=== PATIENT | female | born 1990 | race Two or more races ===

== ENCOUNTER 2017-07-01 21:11 | Emergency (ER) | payer BC, MEDICAID ==
[2017-07-01] MEDS ORDERED: Ketorolac INJ* 30 MG/ML 1 ML VIAL IV PUSH ONE (21:43)
[2017-07-01] MEDS ORDERED: Pantoprazole IV* 40 MG IV ONE (21:43)
[2017-07-01] MEDS ORDERED: NS 0.9% 1000 ML* 2,000 ML IV ONE (21:43)
[2017-07-01] MEDS ORDERED: Morphine INJ* 4 MG/ML 1 ML SYRINGE IV ONE (21:43)
[2017-07-01] MEDS ORDERED: Ondansetron INJ* 2 MG/ML VIAL IV ONE (21:43)
[2017-07-01 22:03] LABS: Hematocrit 42 % (35-47); Mean Corpuscular HGB Conc 34 g/dl (31-36); Mean Corpuscular Hemoglobin 31 pg (27-31); Mean Corpuscular Volume 93 fL (80-97); Mean Platelet Volume 9 um3 (7.4-10.4); Red Cell Distribution Width 13 % (10.5-15); White Blood Count 10.3 10^3/ul (3.5-10.8)
[2017-07-01 22:17] LABS: ALT 22 U/L (7-52); AST 37 U/L (13-39); Albumin 4.1 g/dL (3.2-5.2); Alkaline Phosphatase 80 U/L (34-104); Anion Gap 6 mmol/L (2-11); BUN/Creatinine Ratio 15.2 (8-20); Blood Urea Nitrogen 14 mg/dL (6-24); CO2 Carbon Dioxide 29 mmol/L (22-32); Calcium 8.9 mg/dL (8.6-10.3); Chloride 103 mmol/L (101-111); EGFR African American 94.9 (>60); EGFR Non-African American 73.8 (>60); Globulin 2.8 g/dL (2-4); Glucose 106 mg/dL (70-100); Lipase 18 U/L (11.0-82.0); Potassium 3.6 mmol/L (3.5-5.0); Sodium 138 mmol/L (133-145); Total Protein 6.9 g/dL (6.4-8.9)
--- NOTE | 2017-07-01 23:53 | ED ---
GI/ HPI - HPI Summary HPI Summary: 26F (transgender) presents with epigastric pain. He states that he had nausea and vomiting yesterday but has not vomited today but feels like he should. He admits to diarrhea today. His last BM was 3 hours ago. He states the epigastric pain radiates to his back. He states had this pain once when was septic from surgery for mastectomy. Has had gallbladder removed like 6 months ago. has not been seen for this pain yet. no dysuria, hematuria, flank pain, frequency or urgency. She tried peptobismol, gasx without relief. He took some tyenlol without relief. He denies any history of obstruction. He does drink alot daily. - History of Current Complaint Chief Complaint: EDAbdPain Time Seen by Provider: 07/01/17 21:34 Stated Complaint: WORSENING ABD PAIN,VOMITING Pain Intensity: 8 - Allergy/Home Medications Allergies/Adverse Reactions: Allergies Allergy/AdvReac Type Severity Reaction Status Date / Time No Known Allergies Allergy Verified 09/15/16 19:25 PMH/Surg Hx/FS Hx/Imm Hx Endocrine/Hematology History: Denies: Hx Anticoagulant Therapy, Hx Diabetes, Hx Thyroid Disease Cardiovascular History: Denies: Hx Congestive Heart Failure, Hx Deep Vein Thrombosis, Hx Hypertension , Hx Myocardial Infarction, Hx Pacemaker/ICD Respiratory History: Reports: Hx Asthma - Not on any medications for this. Denies: Hx Chronic Obstructive Pulmonary Disease (COPD), Hx Lung Cancer, Hx Pneumonia, Hx Pulmonary Embolism GI History: Denies: Hx Gall Bladder Disease, Hx Gastrointestinal Bleed, Hx Ulcer, Hx Urosepsis History: Denies: Hx Kidney Stones, Hx Renal Disease Neurological History: Denies: Hx Dementia, Hx Migraine, Hx Seizures, Hx Transient Ischemic Attacks (TIA) Psychiatric History: Reports: Hx Anxiety, Hx Depression Denies: Hx Schizophrenia, Hx Bipolar Disorder - Surgical History Surgery Procedure, Year, and Place: bilateral mastectomy Infectious Disease History: No Infectious Disease History: Denies: History Other Infectious Disease, Traveled Outside the [place] in Last 30 Days - Family History Known Family History: Positive: Diabetes Negative: Cardiac Disease, Hypertension - Social History Alcohol Use: Occasionally Substance Use Type: Reports: None Smoking Status (MU): Never Smoked Tobacco Review of Systems Negative: Fever Negative: Chest Pain Negative: Shortness Of Breath Positive: Abdominal Pain, Vomiting, Diarrhea, Nausea All Other Systems Reviewed And Are Negative: Yes Physical Exam Triage Information Reviewed: Yes Vital Signs On Initial Exam: Initial Vitals Temp Pulse Resp BP Pulse Ox 98.5 F 88 18 136/59 99 07/01/17 21:19 07/01/17 21:19 07/01/17 21:19 07/01/17 21:19 07/01/17 21:19 Vital Signs Reviewed: Yes Appearance: Positive: Pain Distress Skin: Positive: Warm, Dry Head/Face: Positive: Normal Head/Face Inspection Eyes: Positive: Normal, EOMI, DANTE, Conjunctiva Clear ENT: Positive: Normal ENT inspection, Pharynx normal, TMs normal Respiratory/Lung Sounds: Positive: Clear to Auscultation, Breath Sounds Present Cardiovascular: Positive: Normal, RRR Abdomen Description: Positive: Soft, Other: - moderate tenderness epigastric no rebound Bowel Sounds: Positive: Present - [place] Coma Scale Coma Scale Total: 15 Diagnostics - Vital Signs Vital Signs Temp Pulse Resp BP Pulse Ox 07/01/17 22:26 18 07/01/17 21:56 98.1 F 81 18 139/74 99 07/01/17 21:19 98.5 F 88 18 136/59 99 - Laboratory Lab Results: Lab Results 07/01/17 07/01/17 Range/Units 21:55 21:55 WBC 10.3 (3.5-10.8) 10^3/ul RBC 4.50 (4.0-5.4) 10^6/ul Hgb 14.0 (12.0-16.0) g/dl Hct 42 (35-47) % MCV 93 (80-97) fL MCH 31 (27-31) pg MCHC 34 (31-36) g/dl RDW 13 (10.5-15) % Plt Count 227 (150-450) 10^3/ul MPV 9 (7.4-10.4) um3 Neut % (Auto) 67.6 (38-83) % Lymph % (Auto) 23.5 L (25-47) % [place] % (Auto) 7.5 (1-9) % Eos % (Auto) 1.0 (0-6) % Baso % (Auto) 0.4 (0-2) % Absolute Neuts (auto) 7.0 (1.5-7.7) 10^3/ul Absolute Lymphs (auto) 2.4 (1.0-4.8) 10^3/ul Absolute Monos (auto) 0.8 (0-0.8) 10^3/ul Absolute Eos (auto) 0.1 (0-0.6) 10^3/ul Absolute Basos (auto) 0 (0-0.2) 10^3/ul Absolute Nucleated RBC 0.01 10^3/ul Nucleated RBC % 0.1 Sodium 138 (133-145) mmol/L Potassium 3.6 (3.5-5.0) mmol/L Chloride 103 (101-111) mmol/L Carbon Dioxide 29 (22-32) mmol/L Anion Gap 6 (2-11) mmol/L BUN 14 (6-24) mg/dL Creatinine 0.92 (0.51-0.95) mg/dL Est GFR ( Amer) 94.9 (>60) Est GFR (Non-Af Amer) 73.8 (>60) BUN/Creatinine Ratio 15.2 (8-20) Glucose 106 H (70-100) mg/dL Calcium 8.9 (8.6-10.3) mg/dL Total Bilirubin 0.40 (0.2-1.0) mg/dL AST 37 (13-39) U/L ALT 22 (7-52) U/L Alkaline Phosphatase 80 (34-104) U/L C-React Prot High Sens 0.31 mg/L Total Protein 6.9 (6.4-8.9) g/dL Albumin 4.1 (3.2-5.2) g/dL Globulin 2.8 (2-4) g/dL Albumin/Globulin Ratio 1.5 (1-3) Lipase 18 (11.0-82.0) U/L Beta HCG, Quant < 0.60 mIU/mL Result Diagrams: 07/01/17 21:55 07/01/17 21:55 Lab Statement: Any lab studies that have been ordered have been reviewed, and results considered in the medical decision making process. - CT abd CT Interpretation: Positive (See Comments) - trace contast in dsital esophagus possible refluxed. no clear perpancreatic inflammatory changes. multiple midly distended loops of small bowel with scattered air fluid levels may resepresent ileus or partial obstruction. normal appnedix. CT Interpretation Completed By: Radiologist Re-Evaluation - Re-Evaluation First Eval Re-Evaluation Time: 12:00 Change: Improved Comment: currently sleeping GIGU Course/Dx - Course Course Of Treatment: 26F (transgender) presents with epigastric pain. He states that he had nausea and vomiting yesterday but has not vomited today but feels like he should. He admits to diarrhea today. His last BM was 3 hours ago. He states the epigastric pain radiates to his back. He states had this pain once when was septic from surgery for mastectomy. Has had gallbladder removed like 6 months ago. has not been seen for this pain yet. no dysuria, hematuria, flank pain, frequency or urgency. She tried peptobismol, gasx without relief. He took some tyenlol without relief. He denies any history of obstruction. on exam tender in epigastric region. labs normal. CT potential obstruction or ileus? told to return if symptoms get worst. discussed with dr cheng will send home with bowel rest. patient understands and agrees with plan. - Diagnoses Differential Diagnoses - Female: Pancreatitis, Peptic Ulcer Disease, Other - SBO , ileus Provider Diagnoses: Abdominal pain Discharge - Discharge Plan Condition: Good Disposition: HOME Prescriptions: Ondansetron ODT TAB* [Zofran 4 MG Odt TAB*] 4 mg PO Q6H PRN #15 tab.odt PRN Reason: Nausea Patient Education Materials: Clear Liquid Diet (ED), Abdominal Pain (ED) Referrals: [facility] [place] [place] [facility] REFERRAL [Outside] Additional Instructions: Drink small amounts of fluid as tolerated Follow a clear liquid diet Take zofran every 6 hours for nausea Take ibuprofen or Tylenol for pain as needed every 6 hours Establish care with primary Return to ED if develop any new or worsening symptoms
[2017-07-02] MEDS ORDERED: Iohexol 300* (CONTRAST) 10 ML SDV IV ONE (00:05)
[2017-07-02 00:59] LABS: Urine Bacteria Absent (Absent); Urine Bilirubin Negative (Negative); Urine Glucose Negative (Negative); Urine Nitrite Negative (Negative)
[2017-07-02] MEDS ORDERED: Ondansetron ODT TAB* 4 MG PO ONE (01:49)
[2017-07-02 02:11] VITALS: BP 102/54
[2017-07-02] MEDS ORDERED: Acetaminophen TAB* 325 MG PO ONE ×2 (03:04)
[2017-07-02] MEDS ORDERED: Acetaminophen TAB* 325 MG ONE (03:06)
--- NOTE | 2017-07-02 10:01 | RAD ---
INDICATION: Severe epigastric pain radiating to the back. Vomiting, nausea, diarrhea. COMPARISON: No relevant prior exams available on the [facility] [place] for comparison. TECHNIQUE: Multidetector CT images were obtained from the lung bases to the ischial tuberosities with 92 mL Omnipaque 300 IV and oral contrast. Multiplanar reformation. REPORT: Unremarkable visualized inferior thorax. Unremarkable liver. Decompressed gallbladder limiting assessment. No CT abnormality of the pancreas or spleen. Moderate gastric distention with contrast and food stuff. No suspicious CT abnormality of the upper GI. Dilatation of the jejunal bowel loops measuring up to 3 cm diameter. Transition point in the anterior mid abdomen with moderate length segment moderate mural thickening reference coronal reformatted image 21 of 88 and adjacent images. No discrete obstructing lesion evident. Some contrast passes distal to the noted transition point. Moderate stool in the RIGHT colon. Normal appendix visualized along the RIGHT pelvic sidewall. Small volume of free pelvic fluid. Negative for free air. Negative for hernias. Normal adrenal glands. Unremarkable kidneys with symmetric nephrograms and pyelograms. Negative for hydronephrosis. No suspicious finding along the course of the nondilated ureters. Moderately distended urinary bladder. Unremarkable retroverted uterus and adnexal regions. Negative for lymphadenopathy. Normal diameter abdominal aorta and iliac arteries. Physiologic distention of the IVC. Negative for suspicious osseous lesions. IMPRESSION: 1. Partial small bowel obstruction with transition point involving a distal jejunal bowel loop in the anterior mid abdomen with moderate mural thickening. While nonspecific consider acute gastroenteritis. Correlate with clinical assessment. 2. Normal appendix documented. 3. Small volume of free pelvic fluid. Negative for free air.
== END 2017-07-02 03:09 | disposition home or self-care (01) ==
LOC: ED 21:11
DX: R10.13 Epigastric pain (principal); R11.2 Nausea with vomiting, unspecified; R19.7 Diarrhea, unspecified
CPT/HCPCS: 36415; 74177; 80053; 81003; 81015; 83690; 84702; 85025; 86141; 87086; 96374; 96375; 99283; A9270-GY; J1885; J2270; J2405; Q9967

== ENCOUNTER 2017-07-02 11:42 | Observation (INO) | payer SELFPAY ==
[2017-07-02] MEDS ORDERED: Ketorolac INJ* 30 MG/ML 1 ML VIAL IV ONE (12:13)
[2017-07-02] MEDS ORDERED: Ondansetron ODT TAB* 4 MG PO ONE (12:13)
[2017-07-02] MEDS ORDERED: Ondansetron INJ* 2 MG/ML VIAL IV ONE (12:13)
[2017-07-02] MEDS ORDERED: NS 0.9% 1000 ML* 1,000 ML IV ONE (12:13)
--- NOTE | 2017-07-02 12:47 | RAD ---
Indication: Worsening of abdominal pain. Nausea and vomiting. Comparison: 0035 hours July 02, [address] Technique: Supine and upright views of the abdomen. Report: No radiographic evidence for free air. Long segment dilated small bowel loops with air-fluid levels. Propagation of oral contrast from the earlier CT exam of the same date to the RIGHT colon. Remainder of the colon is largely decompressed. No suspicious calcifications or mass effect. IMPRESSION: Persistent finding of partial small bowel obstruction. Negative for free air.
[2017-07-02 12:58] LABS: Hematocrit 46 % (35-47); Hemoglobin 15.3 g/dl (12.0-16.0); Mean Corpuscular HGB Conc 34 g/dl (31-36); Mean Corpuscular Hemoglobin 32 pg (27-31); Mean Corpuscular Volume 94 fL (80-97); Mean Platelet Volume 9 um3 (7.4-10.4); Red Blood Count 4.87 10^6/ul (4.0-5.4); Red Cell Distribution Width 13 % (10.5-15); White Blood Count 10.5 10^3/ul (3.5-10.8)
[2017-07-02 13:15] LABS: Albumin 3.8 g/dL (3.2-5.2); BUN/Creatinine Ratio 6.7 (8-20); C Reactive Protein 2.05 mg/L (< 5.00); Calcium 9.2 mg/dL (8.6-10.3); EGFR African American 98.6 (>60); EGFR Non-African American 76.7 (>60); Globulin 2.9 g/dL (2-4); Potassium 3.8 mmol/L (3.5-5.0); Total Bilirubin 0.8 mg/dL (0.2-1.0); Total Protein 6.7 g/dL (6.4-8.9)
[2017-07-02] MEDS ORDERED: traZODone TAB* 50 MG TAB PO PRN ×2 (14:49→14:59)
[2017-07-02] MEDS ORDERED: Ketorolac INJ* 15 MG/ML 1 ML VIAL IV PUSH PRN (14:50)
[2017-07-02] MEDS ORDERED: Ondansetron INJ* 2 MG/ML VIAL IV PRN (14:50)
[2017-07-02] MEDS ORDERED: Acetaminophen TAB* 325 MG PO PRN (14:50)
[2017-07-02] MEDS ORDERED: metroNIDAZOLE IV 500 MG/100ML* 500 MG/100 ML BAG IVPB SCH (15:00)
[2017-07-02] MEDS ORDERED: metroNIDAZOLE IV 500 MG/100ML* 500 MG/100 ML BAG IVPB ONE (15:23)
[2017-07-02] MEDS: Sucralfate TAB* 1 GM PO SCH (15:25)
[2017-07-02] MEDS: Pantoprazole IV* 40 MG IV SCH (15:25)
[2017-07-02] MEDS: NS 0.9% 1000 ML* 1,000 ML IV SCH (16:46)
[2017-07-02] MEDS: Ciprofloxacin 400MG IVPREMIX(* 400 MG/200 ML BAG IVPB SCH (16:48)
[2017-07-02] MEDS ORDERED: Scopolamine 1.5 mg* PATCH TRANSDERM SCH (17:00)
[2017-07-02 17:39] LABS: Urine Bilirubin Negative (Negative); Urine Glucose Negative (Negative); Urine Nitrite Negative (Negative)
--- NOTE | 2017-07-02 17:59 | ED ---
Bonnie Olson SooYoung, scribed for Sinan Lundberg MD on 07/02/17 at 1217 . GI/ HPI - HPI Summary HPI Summary: A 26 y/o FTM pt presents with c/o L-sided abd pain and bloating onset two days ago. Pain is non-radiating and rated as 10 out of 10. Associated sx: n/d, subjective fever, chills. Pt was seen in ED yesterday for same sx. Pt has been unable to eat and drink. Pt states taking an herbal supplement, Kratom, two days ago and then having sudden onset, acute abd pain. No prev abd sx episodes similar to this. Nonsmoker. Occasional ETOH. Marijuana for pain and nausea. - History of Current Complaint Chief Complaint: EDAbdPain Time Seen by Provider: 07/02/17 12:03 Stated Complaint: ABD PAIN Hx Obtained From: Patient Onset/Duration: Started Days Ago - two days ago, Still Present Timing: Constant Current Severity: Severe Pain Intensity: 8 - OUT OF 10 Location of Pain: LUQ, LLQ Pain Characteristics: Unable to describe Associated Signs and Symptoms: Positive: Nausea - severe, Diarrhea, Fever - subjective, Chills - Allergy/Home Medications Allergies/Adverse Reactions: Allergies Allergy/AdvReac Type Severity Reaction Status Date / Time No Known Allergies Allergy Verified 07/02/17 11:58 PMH/Surg Hx/FS Hx/Imm Hx Previously Healthy: No Endocrine/Hematology History: Denies: Hx Anticoagulant Therapy, Hx Diabetes, Hx Thyroid Disease Cardiovascular History: Denies: Hx Congestive Heart Failure, Hx Deep Vein Thrombosis, Hx Hypertension , Hx Myocardial Infarction, Hx Pacemaker/ICD Respiratory History: Reports: Hx Asthma - Not on any medications for this. Denies: Hx Chronic Obstructive Pulmonary Disease (COPD), Hx Lung Cancer, Hx Pneumonia, Hx Pulmonary Embolism GI History: Denies: Hx Gall Bladder Disease, Hx Gastrointestinal Bleed, Hx Ulcer, Hx Urosepsis History: Denies: Hx Kidney Stones, Hx Renal Disease Neurological History: Denies: Hx Dementia, Hx Migraine, Hx Seizures, Hx Transient Ischemic Attacks (TIA) Psychiatric History: Reports: Hx Anxiety, Hx Depression Denies: Hx Schizophrenia, Hx Bipolar Disorder - Surgical History Surgery Procedure, Year, and Place: bilateral mastectomy, cholecystectomy Infectious Disease History: No Infectious Disease History: Denies: History Other Infectious Disease, Traveled Outside the [place] in Last 30 Days - Family History Known Family History: Positive: Diabetes Negative: Cardiac Disease, Hypertension - Social History Occupation: Employed Full-time Lives: With Family - FRIEND Alcohol Use: Occasionally Hx Substance Use: Yes Substance Use Type: Reports: Marijuana Hx Tobacco Use: No Smoking Status (MU): Never Smoked Tobacco Review of Systems Positive: Fever - subjective, Chills Positive: Abdominal Pain, Diarrhea, Nausea All Other Systems Reviewed And Are Negative: Yes Physical Exam - Summary Physical Exam Summary: VITAL SIGNS: Reviewed. GENERAL: Patient is a well-developed and nourished FTM person who is lying comfortable in the stretcher. Patient is not in any acute respiratory distress. HEAD AND FACE: Normocephalic and atraumatic. EYES: PERRLA, EOMI x 2, No injected conjunctiva. EARS: Hearing grossly intact. Ear canals and tympanic membranes are WNL. MOUTH: Oropharynx within normal limits. NECK: Supple, trachea is midline, no adenopathy, no JVD. CHEST: Symmetric, no tenderness at palpation LUNGS: Clear to auscultation bilaterally. No wheezing or crackles. CVS: RRR, S1 and S2 present, no murmurs or gallops appreciated. ABDOMEN: SOFT. L-SIDED ABD TENDERNESS, NO REBOUND, NO GUARDING. No signs of distention. No masses palpated. No abdominal bruit or pulsations. EXTREMITIES: FROM in all major joints, no edema, no cyanosis or clubbing. NEURO: Alert and oriented x 3. No acute neurological deficits. Speech is normal. SKIN: Dry and warm Triage Information Reviewed: Yes Vital Signs On Initial Exam: Initial Vitals Temp Pulse Resp BP Pulse Ox 98.9 F 84 16 123/64 97 07/02/17 11:45 07/02/17 11:45 07/02/17 11:45 07/02/17 11:45 07/02/17 11:45 Vital Signs Reviewed: Yes - [place] Coma Scale Coma Scale Total: 15 Diagnostics - Vital Signs Vital Signs Temp Pulse Resp BP Pulse Ox 07/02/17 11:45 98.9 F 84 16 123/64 97 - Laboratory Lab Results: Lab Results 07/02/17 07/02/17 07/02/17 Range/Units 12:43 12:43 12:43 WBC 10.5 (3.5-10.8) 10^3/ul RBC 4.87 (4.0-5.4) 10^6/ul Hgb 15.3 (12.0-16.0) g/dl Hct 46 (35-47) % MCV 94 (80-97) fL MCH 32 H (27-31) pg MCHC 34 (31-36) g/dl RDW 13 (10.5-15) % Plt Count 244 (150-450) 10^3/ul MPV 9 (7.4-10.4) um3 Neut % (Auto) 80.4 (38-83) % Lymph % (Auto) 13.3 L (25-47) % [place] % (Auto) 4.9 (1-9) % Eos % (Auto) 0.6 (0-6) % Baso % (Auto) 0.8 (0-2) % Absolute Neuts (auto) 8.4 H (1.5-7.7) 10^3/ul Absolute Lymphs (auto) 1.4 (1.0-4.8) 10^3/ul Absolute Monos (auto) 0.5 (0-0.8) 10^3/ul Absolute Eos (auto) 0.1 (0-0.6) 10^3/ul Absolute Basos (auto) 0.1 (0-0.2) 10^3/ul Absolute Nucleated RBC 0 10^3/ul Nucleated RBC % 0 Sodium 135 (133-145) mmol/L Potassium 3.8 (3.5-5.0) mmol/L Chloride 102 (101-111) mmol/L Carbon Dioxide 26 (22-32) mmol/L Anion Gap 7 (2-11) mmol/L BUN 6 (6-24) mg/dL Creatinine 0.89 (0.51-0.95) mg/dL Est GFR ( Amer) 98.6 (>60) Est GFR (Non-Af Amer) 76.7 (>60) BUN/Creatinine Ratio 6.7 L (8-20) Glucose 96 (70-100) mg/dL Lactic Acid 0.8 (0.5-2.0) mmol/L Calcium 9.2 (8.6-10.3) mg/dL Total Bilirubin 0.80 (0.2-1.0) mg/dL AST 31 (13-39) U/L ALT 21 (7-52) U/L Alkaline Phosphatase 74 (34-104) U/L C-Reactive Protein 2.05 (< 5.00) mg/L Total Protein 6.7 (6.4-8.9) g/dL Albumin 3.8 (3.2-5.2) g/dL Globulin 2.9 (2-4) g/dL Albumin/Globulin Ratio 1.3 (1-3) Amylase 76 (29-103) U/L Lipase 14 (11.0-82.0) U/L Result Diagrams: 07/02/17 12:43 07/02/17 12:43 Lab Statement: Any lab studies that have been ordered have been reviewed, and results considered in the medical decision making process. - Radiology ABD Xray Interpretation: Positive (See Comments) - IMPRESSION: Persistent finding of partial small bowel obstruction. Negative for free air. Radiology Interpretation Completed By: Radiologist - EKG 1312 Cardiac Rate: NL - 85 bpm EKG Rhythm: Sinus Rhythm ST Segment: Normal - no ST elevation GIGU Course/Dx - Course Course Of Treatment: Pt is a 26 y/o FTM pt presents with c/o L-sided abd pain and bloating onset two days ago. Pain is non-radiating and rated as 10 out of 10. Associated sx: n/d, subjective fever, chills. Pt was seen in ED yesterday for same sx. Pt has been unable to eat and drink. Pt states taking an herbal supplement, Kratom, two days ago and then having sudden onset, acute abd pain. No prev abd sx episodes similar to this. Nonsmoker. Occasional ETOH. Marijuana for pain and nausea. Blood work is without significant abnormalities. EKG is NSR at [address] elevation. ABD XR shows "Persistent finding of partial small bowel obstruction. Negative for free air.". In the ED course an IV access was obtained. Patient was placed in a vehicle monitor technician. Patient was started with IV fluids. He was given Toradol for the pain and Zofran for nausea and vomiting. Labs w/o a significant abnormality. EKG shows a NSR at w/o ST elevations. Abdominal X-ray: Persistent finding of partial small bowel obstruction. Negative for free air. Patient continues to be nauseous therefore he was given another dose of Zofran. CT of abdomen and pelvis yesterday showed the small bowel obstruction. I discuss my physical exam, findings and test results with Dr. Villarreal from the hospitalist services and she agrees to admit patient to his services. Patient is hemodynamically stable alert and oriented x 3. - Diagnoses Differential Diagnoses - Female: Bowel Obstruction, Colitis, Fecal Impaction, Urinary Tract Infection Provider Diagnoses: Partial small bowel obstruction - Physician Notifications Discussed Care Of Patient With: Ama Villarreal - hospitalist Time Discussed With Above Provider: 13:23 Instructed by Provider To: Admit As Inpatient Discharge - Discharge Plan Condition: Stable Disposition: ADMITTED TO [facility] The documentation as recorded by the Bonnie pack SooYoung accurately reflects the service I personally performed and the decisions made by me, Sinan Lundberg MD.
--- NOTE | 2017-07-02 18:18 | HP ---
HISTORY AND PHYSICAL: DATE OF ADMISSION: 07/02/17 PRIMARY CARE PROVIDER: The patient has no primary care provider at this time. CHIEF COMPLAINT: Abdominal pain. HISTORY OF PRESENT ILLNESS: Ms. Reyes is a 26-year-old transgender female to male patient that lik es to be called [place]. He states that he was in his usual state of health until 3 days ago when he started to experience epigastric pain associated with multiple episodes of vomiting. He states lakeisha t he was unable to eat or to keep fluids. He also complains of chills and non-measured fever. Yesterday, he had 3 episodes of diarrhea described as soft stool with no blood or mucus. He present ed to the emergency room yesterday and was diagnosed with abdominal pain, possible ileus versus obst ruction, and was discharged home, but advised to return to the emergency room if the symptoms worsen ed. Workup included a CT of the abdomen and pelvis with contrast that revealed a partial small-tatyana l obstruction with transition point involving a distal jejunal bowel loop in the anterior mid abdome n with moderate mural thickening. While nonspecific, should consider acute gastroenteritis. There was normal appendix documented and small volume of free pelvic fluid. The patient states that since discharge, he was still unable to keep any food or drinks down and thi s morning, the pain was severe not only in the epigastric area, but also in the left lower quadrant. The diarrhea seems to be resolved, but the vomiting persists, so he decided to return to the emerg ency room for further evaluation. Preceding the patient's symptoms, he did eat some food from [employer]. PAST MEDICAL HISTORY: 1. Transgender female to male, status post bilateral mastectomies in 2013 and now receiving hormone therapy. 2. Status post cholecystectomy. MEDICATION LIST: 1. Bupropion 150 mg p.o. b.i.d. 2. Zofran 4 mg p.o. q.6 hours p.r.n. nausea. 3. Depo-Testosterone 0.4 mL injection weekly. 4. Trazodone 50 mg p.o. b.i.d. as needed for insomnia. ALLERGIES: No known drug allergies. FAMILY HISTORY: The patient states that his father has diabetes and there is also history of heart disease on his father's side of the family. SOCIAL HISTORY: The patient denies smoking. States that he drinks socially. Last drink was a shot of rum yesterday. The patient also smoked marijuana yesterday trying to improve his symptoms with no response, but denies using any other drugs and states that he does not use marijuana regularly. REVIEW OF SYSTEMS: A 14-point review of systems was performed and all the pertinent negative and po sitive findings were described in the HPI. PHYSICAL EXAMINATION GENERAL: The patient is a pleasant young male lying on the ER stretcher, in no acute distress. VITAL SIGNS: Temperature 98.9, heart rate is 84, oxygen saturation 96% on room air, blood pressure is 122/75. HEENT: Pupils are equal, reactive to light. Dry mucous membranes. CHEST: Breath sounds present bilaterally with no added sounds. CVS: Normal S1 and S2. Regular rate and rhythm. ABDOMEN: Soft and nontender at this time, but the patient received pain medication prior to my exam ination. Bowel sounds are present and increased. There is no guarding or rebound. EXTREMITIES: No edema. NEURO: The patient is alert, awake, and oriented x3. Able to move all 4 extremities. DIAGNOSTIC STUDIES/LAB DATA: The patient had a CBC that showed a WBC of 10.5, hemoglobin of 15.3, hematocrit of 46, platelets of 244 with 80% neutrophils. Chemistry showed sodium of 135, potassium 3 .8, chloride of 102, bicarb of 26, BUN of 6, creatinine of 0.89, glucose of 96, lactic acid of 0.8, calcium 9.2. LFTs are normal. Abdomen x-ray done today showed persistent findings of partial small-bowel obstruction. No free air . CT of the abdomen and pelvis done yesterday was described in the HPI. EKG shows sinus rhythm at 85 beats per minute with no ST-T changes. There is no prior EKG to compar e. ASSESSMENT AND PLAN: Ms. Kendra Reyes is a 26-year-old transgender female to male patient that lik es to be called [facility] that presents to the emergency room with complaints of abdominal pain, nausea , vomiting, and diarrhea, who failed outpatient management and is going to be admitted for acute gas troenteritis. 1. Acute gastroenteritis. Suspect this is likely associated with the patient's takeout food from [employer] preceding the start of his symptoms. He tried managing his symptoms at home, but has failed. He is going to be admitted as observation to the medical floor. He is going to receive IV hydrati on, symptomatic treatment, and as he is complaining of fever and chills and there is concern for pos sible bacterial infection too, he is going to be started on Cipro and Flagyl. His stool workup was requested and the patient will be started on a clear liquid diet. 2. DVT prophylaxis. The patient has score of 0 on the DVT Prophylaxis Risk Assessment Guide and we are going to encourage ambulation. 3. Code status is full. TIME SPENT: Approximately 45 minutes was spent with patient interview, medical records review, phys ical examination to complete this admission, more than half of this time was spent [id number] with the patient and coordination of care. [id number]/[facility] #: [id number]
[2017-07-02] MEDS: buPROPion SR TAB.SR* 150 MG PO SCH (21:36)
[2017-07-02] MEDS ORDERED: NS 0.9% 1000 ML* 1,000 ML IV SCH (22:00)
[2017-07-03] MEDS: metroNIDAZOLE IV 500 MG/100ML* 500 MG/100 ML BAG IVPB SCH ×3 (01:47→08:05)
[2017-07-03] MEDS: NS 0.9% 1000 ML* 1,000 ML IV SCH (03:12)
[2017-07-03] MEDS: Ciprofloxacin 400MG IVPREMIX(* 400 MG/200 ML BAG IVPB SCH (06:24)
[2017-07-03] MEDS: buPROPion SR TAB.SR* 150 MG PO SCH (08:04)
[2017-07-03] MEDS: Sucralfate TAB* 1 GM PO SCH ×2 (08:04→11:24)
[2017-07-03] MEDS: Pantoprazole IV* 40 MG IV SCH (08:05)
[2017-07-03 11:29] VITALS: BP 101/59
--- NOTE | 2017-07-05 03:32 | DS ---
DISCHARGE SUMMARY: DATE OF ADMISSION: 07/02/17 DATE OF DISCHARGE: 07/03/17 The patient does not have a primary care provider at this time, but this will be set up. DISCHARGE DIAGNOSIS: Acute gastroenteritis. HISTORY OF PRESENT ILLNESS: Ms. Reyes is a 26-year-old transgender female to male patient that goes by the name Gibson. He presented to the emergency room with complaints of abdominal pain, nausea, vomiting, and diarrhea after eating a meal from the [employer] at [facility]; and initially was discharged home, but as the symptoms persisted he returned and was admitted for further treatment. For more details about his presentation, I refer you to his history and physical. On his prior ED visit, the patient had a CT of the abdomen and pelvis that showed partial small bowel obstruction with transition point involving a distal jejunal bowel loop in the anterior mid abdomen with moderate mural thickening. While nonspecific, consider acute gastroenteritis. Normal appendix was documented. On the second visit, the patient had an abdominal x-ray that showed persistent findings of partial small bowel obstruction, but was negative for free air. The patient was admitted, started empirically on ciprofloxacin and metronidazole and IV hydration. He described significant improvement of his symptoms, had 2 bowel movements prior to discharge. Abdomen was soft during admission and he was able to tolerate a low-fiber diet. The patient felt well enough to be discharged home. PHYSICAL EXAMINATION: Vital Signs: Temperature 97.5, heart rate is 68, respiratory rate is 16, oxygen saturation is 99% on room air, blood pressure is 101/59. General: The patient is a young patient, lying in bed, in no acute distress. CVS: Normal S1 and S2. Regular, rate, and rhythm. Chest: Breath sounds present bilaterally with no added sounds. Abdomen: Soft, nontender, and nondistended; bowel sounds are present. Extremities: No edema. Neuro: The patient is alert and oriented x3; able to move all 4 extremities. MEDICATION LIST: 1. Trazodone 50 mg p.o. b.i.d. p.r.n. anxiety and insomnia. 2. Depo-Testosterone 0.4 mL injection weekly. 3. Bupropion SR 150 mg p.o. b.i.d. New Medications: 1. Sucralfate 1 g p.o. before meals. 2. Compazine 5 mg p.o. q.6 hours p.r.n. nausea. 3. Omeprazole 20 mg p.o. daily at 6 a.m. 4. Metronidazole 500 mg p.o. q.8 hours for 5 more days. 5. Ciprofloxacin 500 mg p.o. q.12 hours for 5 more days. 6. Acetaminophen 650 mg p.o. q.6 hours p.r.n. pain or fever. DIET: Low-fiber diet. The patient was advised to avoid lactulose for 2 weeks. ACTIVITY: As tolerated. DISPOSITION: To home. STATUS DURING THE HOSPITAL: Observation. Just keep in mind this is a summarized version of this patient's hospital stay. If you need more information, please feel free to call me at [phone] or please obtain the full medical records. TIME SPENT: Approximately 45 minutes was spent to complete this discharge. [id number] #: [id number] MTDD
[2017-07-05] MEDS ORDERED: Scopolomine PATCH Remove* 1 NOTE MISC PATCH OFF SCH (17:00)
== END 2017-07-03 15:20 | disposition home or self-care (01) ==
LOC: ED 11:42 → MED 14:47 → ED 16:02
PROVIDERS: ADMIT Internal Medicine; ATTEND Internal Medicine
DX: K52.9 Noninfective gastroenteritis and colitis, unspecified (principal); R10.13 Epigastric pain; R11.10 Vomiting, unspecified; R19.7 Diarrhea, unspecified; R93.3 Abnormal findings on diagnostic imaging of other parts of digestive tract
CPT/HCPCS: 36415; 74020; 80053; 81003; 82150; 83605; 83690; 85025; 86140; 93005; 96374; 96375; 99283; A9270-GY; G0378; J0744; J1885; J2405